=== PATIENT | male | born 1955 | race Caucasian/White ===

== ENCOUNTER 2023-07-08 20:17 | Emergency (ER) | payer BC, MEDICAID ==
[~2023-07-08] VITALS: Ht 185.4 cm; Wt 99.8 kg
[2023-07-08] MEDS ORDERED: LORAZEPAM 2 MG/1 ML VIAL IV ONE (20:45)
[2023-07-08] MEDS ORDERED: IV NORMAL SALINE 500 ML IV ONE (20:45)
[2023-07-08] MEDS ORDERED: LORAZEPAM 2 MG/1 ML VIAL ONE (20:58)
[2023-07-08 21:38] LABS: BASOPHILS # (AUTO) 0.1 K/UL (0.0-0.2); BASOPHILS % (AUTO) 1.1 % (0.0-2.0); EOSINOPHILS # (AUTO) 0.2 K/uL (0.0-0.7); HEMATOCRIT 43.7 % (36.7-47.1); HEMOGLOBIN 14.7 g/dL (12.5-16.3); LYMPHOCYTES # (AUTO) 2.2 K/uL (0.8-4.8); LYMPHOCYTES % (AUTO) 20.3 % (20.5-51.5); MEAN CORPUSCULAR HEMOGLOBIN 28.8 uug (23.8-33.4); MEAN CORPUSCULAR HGB CONC 34 g/dL (32.5-36.3); MEAN CORPUSCULAR VOLUME 85.9 fL (73.0-96.2); MONOCYTES # (AUTO) 0.5 K/uL (0.1-1.30); MONOCYTES % (AUTO) 4.5 % (0.0-11.0); NEUTROPHILS # (AUTO) 7.7 K/uL (1.8-8.9); NEUTROPHILS % (AUTO) 72.1 % (38.5-71.5); PLATELET COUNT (AUTO) 296 K/uL (152-348); RED BLOOD CELL COUNT(AUTO) 5.09 MIL/uL (4.06-5.63); RED CELL DISTRIBUTION WIDTH 15.1 % (12.1-16.2); WHITE BLOOD COUNT (AUTO) 10.7 K/uL (3.6-10.2)
[2023-07-08 21:52] LABS: DIFFERENTIAL COMMENT 1
[2023-07-08 22:02] LABS: ALBUMIN 3.4 g/dL (3.4-5.0); BILIRUBIN,TOTAL 0.1 mg/dL (0.2-1.0); CALCIUM 9.3 mg/dL (8.5-10.1); CREATININE 0.8 mg/dL (0.6-1.3); POTASSIUM 3.7 mmol/L (3.5-5.1); TOTAL PROTEIN, SERUM 7.3 g/dL (6.4-8.2)
[2023-07-08 22:38] VITALS: BP 154/90; O2SAT 96
== END 2023-07-08 22:38 | disposition home or self-care (01) ==
LOC: ER 20:20
DX: T18.128A Food in esophagus causing other injury, initial encounter (principal); R13.10 Dysphagia, unspecified; Z88.8 Allergy status to other drugs, medicaments and biological substances; X58.XXXA Exposure to other specified factors, initial encounter; Y93.89 Activity, other specified; Y92.89 Other specified places as the place of occurrence of the external cause; Y99.8 Other external cause status
CPT/HCPCS: 99283; 96374; 96361; 80053; 83690; 85025; 85610; 36415; J2060; J7040; A4606; A4663

== ENCOUNTER 2024-06-13 15:03 | Emergency (ER) | payer MEDICARE, OTHER ==
[~2024-06-13] VITALS: Ht 188 cm; Wt 101.2 kg
[2024-06-13] MEDS ORDERED: ATOR40TA PO (15:53)
[2024-06-13] MEDS ORDERED: ALPR0.255 PO (15:53)
[2024-06-13] MEDS ORDERED: DULO60CA64 PO (15:53)
[2024-06-13] MEDS ORDERED: SEMA0.25 SQ (15:53)
[2024-06-13] MEDS ORDERED: LISD50CA2 PO (15:53)
[2024-06-13] MEDS ORDERED: ARIP5TAB59 PO (15:53)
[2024-06-13] MEDS ORDERED: PREG100C55 PO (15:53)
[2024-06-13] MEDS ORDERED: LOSA1TAB36 PO (15:53)
[2024-06-13] MEDS ORDERED: AMLO-212 PO (15:53)
[2024-06-13 16:06] LABS: BASOPHILS # (AUTO) 0.1 K/UL (0.0-0.2); BASOPHILS % (AUTO) 0.7 % (0.0-2.0); EOSINOPHILS % (AUTO) 0.2 % (0.0-7.0); HEMOGLOBIN 15.9 g/dL (12.5-16.3); LYMPHOCYTES # (AUTO) 1.7 K/uL (0.8-4.8); LYMPHOCYTES % (AUTO) 16.4 % (20.5-51.5); MEAN CORPUSCULAR HGB CONC 34 g/dL (32.5-36.3); MEAN CORPUSCULAR VOLUME 85.8 fL (73.0-96.2); MONOCYTES # (AUTO) 0.6 K/uL (0.1-1.30); MONOCYTES % (AUTO) 5.5 % (0.0-11.0); NEUTROPHILS # (AUTO) 7.9 K/uL (1.8-8.9); NEUTROPHILS % (AUTO) 77.2 % (38.5-71.5); PLATELET COUNT (AUTO) 222 K/uL (152-348); RED BLOOD CELL COUNT(AUTO) 5.48 MIL/uL (4.06-5.63); RED CELL DISTRIBUTION WIDTH 14.6 % (12.1-16.2); WHITE BLOOD COUNT (AUTO) 10.2 K/uL (3.6-10.2)
[2024-06-13 16:08] LABS: DIFFERENTIAL COMMENT 1
[2024-06-13 16:14] LABS: CALCIUM 9.8 mg/dL (8.5-10.1); CREATININE 0.7 mg/dL (0.6-1.3); POTASSIUM 3.2 mmol/L (3.5-5.1)
[2024-06-13 16:19] LABS: ALBUMIN 4.1 g/dL (3.4-5.0); BILIRUBIN,DIRECT 0.2 mg/dL (0.0-0.2); BILIRUBIN,TOTAL 0.8 mg/dL (0.2-1.0); TOTAL PROTEIN, SERUM 8.2 g/dL (6.4-8.2)
[2024-06-13] MEDS ORDERED: ALPRAZOLAM 0.25 MG TABLET ONE (16:19)
[2024-06-13] MEDS: IV NORMAL SALINE 1000 ML BAG IV ONE (16:25)
[2024-06-13] MEDS: ALPRAZOLAM 0.25 MG TABLET PO ONE (16:25)
[2024-06-13] MEDS ORDERED: POTASSIUM BICARBONATE/CIT AC 25 MEQ TABLET.EFF ONE (17:02)
[2024-06-13] MEDS ORDERED: METOCLOPRAMIDE HCL 10 MG/2 ML VIAL ONE (17:03)
[2024-06-13] MEDS ORDERED: HYDR-3980 PO (17:08)
[2024-06-13] MEDS ORDERED: METO10TA3 PO (17:08)
[2024-06-13] MEDS: METOCLOPRAMIDE HCL 10 MG/2 ML VIAL IV ONE (17:12)
[2024-06-13] MEDS: POTASSIUM BICARBONATE/CIT AC 25 MEQ TABLET.EFF PO ONE (17:12)
[2024-06-13] MEDS ORDERED: HYDROCODONE/APAP 10-325 MG TABLET ONE (17:27)
[2024-06-13] MEDS: HYDROCODONE/APAP 10-325 MG TABLET PO ONE (17:30)
[2024-06-13 18:17] VITALS: BP 179/65; O2SAT 98
== END 2024-06-13 18:17 | disposition home or self-care (01) ==
LOC: ER 15:03
DX: G89.29 Other chronic pain (principal); M54.50 Low back pain, unspecified; R53.1 Weakness; R10.9 Unspecified abdominal pain; R11.0 Nausea; R16.0 Hepatomegaly, not elsewhere classified; K57.30 Diverticulosis of large intestine without perforation or abscess without bleeding; E11.9 Type 2 diabetes mellitus without complications; Z79.899 Other long term (current) drug therapy; Z89.612 Acquired absence of left leg above knee; Z88.8 Allergy status to other drugs, medicaments and biological substances
CPT/HCPCS: 99285; 74176; 96374; 96361; 80076; 80048; 83690; 85025; J2765; J7040; 36415; A4606; A4663